=== PATIENT | male | born 1995 ===

== ENCOUNTER 2020-05-04 09:49 | Outpatient (CLI) | payer MEDICAID ==
[~2020-05-04] VITALS: Ht 190.5 cm; Wt 86.2 kg
--- NOTE | 2020-05-04 12:30 | Consultation ---
DATE OF CONSULTATION: 05/04/2020 CHIEF COMPLAINT: Diarrhea. HISTORY OF PRESENT ILLNESS: The patient is a 24-year-old male admitted to our office for diarrhea for 5 months, watery in nature. He changed his diet to lactose-free diet without any significant improvement. nondairy diet also did not not change anything. Denies any bleeding. Denies any weight loss. PAST MEDICAL HISTORY: None. PAST SURGICAL HISTORY: Appendectomy. MEDICATIONS: Multivitamin, magnesium, and probiotics. ALLERGIES: No known allergies. FAMILY HISTORY: No family history of GI malignancies. SOCIAL HISTORY: The patient denies any tobacco, alcohol, or drug abuse. REVIEW OF SYSTEMS: Positive for diarrhea, otherwise negative. PHYSICAL EXAMINATION: HEENT: Normocephalic and atraumatic. Sclerae anicteric. NECK: Supple. No evidence of obvious lymphadenopathy. CARDIOVASCULAR: Regular rate and rhythm. Plus S1-S2. LUNGS: Clear to auscultation bilaterally. ABDOMEN: Positive bowel sounds. Soft and nontender. No rebound. No guarding. No peritoneal sign. EXTREMITIES: No cyanosis. No clubbing. No edema. ASSESSMENT AND PLAN: This is a 24-year-old patient with chronic diarrhea, not responding to change in diet. Plan to send the order for celiac panel. The patient also needs a colonoscopy, which will be scheduled as soon as authorization is obtained. Hardik Mina M.D. DR: Joaquín JOB#: [id number] CC:
[2020-05-04] MEDS ORDERED: PROBIOTIC1 EAC2 PO (15:14)
[2020-05-04] MEDS ORDERED: MAGNESIUM400 M1 PO (15:14)
[2020-05-04] MEDS ORDERED: MULTIVITAMINS1 EAC2 ORAL (15:14)
== END 2020-05-04 11:49 | disposition home or self-care (01) ==
LOC: PAN 09:49
DX: R19.7 Diarrhea, unspecified (principal); Z90.89 Acquired absence of other organs; Z79.899 Other long term (current) drug therapy
CPT/HCPCS: G0463